=== PATIENT | male | born 1985 | race Caucasian/White ===

== ENCOUNTER 2019-08-17 11:37 | Emergency (ER) | payer OTHER, SELFPAY | END 2019-08-17 12:00 | disposition home or self-care (01) | LOC: SCSER 11:37 | DX: S90.422A Blister (nonthermal), left great toe, initial encounter (principal); F17.210 Nicotine dependence, cigarettes, uncomplicated; X58.XXXA Exposure to other specified factors, initial encounter | CPT/HCPCS: 99281 ==